=== PATIENT | male | born 1955 | race Caucasian/White ===

== ENCOUNTER 2019-05-16 08:44 | Emergency (ER) | payer BC, MEDICAID ==
[2019-05-16 09:09] VITALS: BP 161/95; PULSE 77
[2019-05-16] MEDS ORDERED: Sodium Chloride 0.9% 10 ML Syringe FLUSH PRN (09:38)
--- NOTE | 2019-05-16 09:44 | EDM.PDOC ---
ED HPI GENERAL MEDICAL PROBLEM - General Chief Complaint: Respiratory Problem Stated Complaint: POSS LUNG INFECTION Time Seen by Provider: 05/16/19 08:59 Source of Information: Reports: Patient History Limitations: Reports: No Limitations - History of Present Illness INITIAL COMMENTS - FREE TEXT/NARRATIVE: Patient is a 63-year-old male who presents with complaints of left-sided chest discomfort, shortness of breath, lightheadedness, night sweats, and nocturnal cough over the last couple days. 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 This condition developed approximate 2 years ago. He states that he did have a talc pleurodesis done a few months ago, however he hasn't unsure exactly when the procedure was. A chest xray was completed in our facility on 03/03/19 and he states that this was a f/u xray from this procedure. He states after the procedure was done he had significant improvement in his shortness of breath, however he feels that the lung may have recollapsed or he may have "a lung infection". His recovery room nurse is Dr. Cates and his technical fellow is Dr. Farfan, both at [facility] in [facility]. Left Chest Pain Score (Numeric/FACES): 4 - Related Data Allergies Allergy/AdvReac Type Severity Reaction Status Date / Time sulfur dioxide Allergy Cannot Verified 05/16/19 09:04 Remember Home Meds: Home Meds Gabapentin [Neurontin] 800 mg PO QID 05/16/19 [History] Lisinopril 20 mg PO DAILY 05/16/19 [History] Pantoprazole Sodium [Protonix] 40 mg PO DAILY 05/16/19 [History] levoFLOXacin [Levaquin] 500 mg PO DAILY 7 Days #7 tab 05/16/19 [Rx] traMADol HCl [Tramadol HCl] 50 mg PO Q6H PRN 05/16/19 [History] Past Medical History Cardiovascular History: Reports: Hypertension Respiratory History: Reports: Other (See Below) Other Respiratory History: 1/3 of left lung is per the pt report Musculoskeletal History: Reports: Arthritis Hematologic History: Reports: Other (See Below) Other Hematologic History: rare formof arthritis in blood - Past Surgical History HEENT Surgical History: Reports: Cataract Surgery Social & Family History - Tobacco Use Smoking Status *Q: Former Smoker Years of Tobacco use: 14 Packs/Tins Daily: 1 Used Tobacco, but Quit: Yes Month/Year Tobacco Last Used: 1987 - Caffeine Use Caffeine Use: Reports: Tea - Recreational Drug Use Recreational Drug Use: No ED ROS GENERAL - Review of Systems Review Of Systems: See Below Constitutional: Reports: Night Sweats. Denies: Fever, Chills HEENT: Reports: No Symptoms Respiratory: Reports: Shortness of Breath, Pleuritic Chest Pain, Cough ( nocturnal) Cardiovascular: Reports: Chest Pain (left sided), Lightheadedness Endocrine: Reports: No Symptoms GI/Abdominal: Reports: No Symptoms : Reports: No Symptoms Musculoskeletal: Reports: No Symptoms Skin: Reports: No Symptoms Neurological: Reports: No Symptoms Psychiatric: Reports: No Symptoms Hematologic/Lymphatic: Reports: No Symptoms Immunologic: Reports: No Symptoms ED EXAM, GENERAL - Physical Exam Exam: See Below Exam Limited By: No Limitations General Appearance: Alert, WD/WN, No Apparent Distress Throat/Mouth: Normal Inspection, Normal Oropharynx Head: Atraumatic, Normocephalic Respiratory/Chest: No Respiratory Distress, No Accessory Muscle Use, Chest Non- Tender, Decreased Breath Sounds (left lung throughout). No: Crackles, Rhonchi, Wheezing Cardiovascular: Normal Peripheral Pulses, Regular Rate, Rhythm, No Edema, No Murmur GI/Abdominal: Normal Bowel Sounds, Soft, Non-Tender Neurological: Alert, Oriented, Normal Cognition Psychiatric: Normal Affect, Normal Mood Skin Exam: Warm, Dry, Intact, Normal Color, No Rash Lymphatic: No Adenopathy EKG INTERPRETATION EKG Date: 05/16/19 Time: 09:02 Rhythm: NSR Rate (Beats/Min): 79 [place]: Normal P-Wave: Present QRS: Normal ST-T: Normal QT: Normal Comparison: NA - No Prior EKG EKG Interpretation Comments: - Early R-wave transition in V3 consider septal hypertrophy - T wave flattening in V5, V6, I, and aVL Course - Vital Signs Last Recorded V/S: Last Vital Signs Temp 97.2 F 05/16/19 09:06 Pulse 77 05/16/19 09:06 Resp 20 05/16/19 09:06 BP 161/95 H 05/16/19 09:06 Pulse Ox 97 05/16/19 09:06 - Orders/Labs/Meds Orders: Active Orders 24 hr Category Date Time Status EKG 12 Lead [EKG Documentation Completion] [RC] STAT Care 05/16/19 09:18 Active Peripheral IV Care [RC] . DIRECTED Care 05/16/19 09:38 Active Peripheral IV Insertion Adult [OM.PC] Stat Oth 05/16/19 09:38 Ordered Labs: Laboratory Tests 05/16/19 05/16/19 05/16/19 Range/Units 09:47 09:47 09:47 WBC 6.62 (4.23-9.07) K/mm3 RBC 5.16 (4.63-6.08) M/mm3 Hgb 13.7 (13.7-17.5) gm/dl Hct 42.8 (40.1-51.0) % MCV 82.9 D (79.0-92.2) fl MCH 26.6 (25.7-32.2) pg MCHC 32.0 L (32.2-35.5) g/dl RDW Std Deviation 50.8 H (35.1-43.9) fL Plt Count 347 H (163-337) K/mm3 MPV 9.7 (9.4-12.3) fl Neut % (Auto) 70.0 H (34.0-67.9) % Lymph % (Auto) 15.3 L (21.8-53.1) % [place] % (Auto) 8.9 (5.3-12.2) % Eos % (Auto) 5.0 (0.8-7.0) Baso % (Auto) 0.6 (0.1-1.2) % Neut # (Auto) 4.64 (1.78-5.38) K/mm3 Lymph # (Auto) 1.01 L (1.32-3.57) K/mm3 [place] # (Auto) 0.59 (0.30-0.82) K/mm3 Eos # (Auto) 0.33 (0.04-0.54) K/mm3 Baso # (Auto) 0.04 (0.01-0.08) K/mm3 D-Dimer, Quantitative 0.36 (0.19-0.50) mg/L Sodium 141 (136-145) mEq/L Potassium 3.5 (3.5-5.1) mEq/L Chloride 105 (98-107) mEq/L Carbon Dioxide 23 (21-32) mEq/L Anion Gap 16.5 H (5-15) BUN 20 H (7-18) mg/dL Creatinine 1.4 H (0.7-1.3) mg/dL Est Cr Clr Drug Dosing 59.01 mL/min Estimated GFR (MDRD) 52 (>60) mL/min BUN/Creatinine Ratio 14.3 (14-18) Glucose 140 H (80-115) mg/dL Calcium 9.3 (8.5-10.1) mg/dL Total Bilirubin 0.2 (0.2-1.0) mg/dL AST 13 L (15-37) U/L ALT 17 (16-63) U/L Alkaline Phosphatase 161 H (46-116) U/L Troponin I < 0.017 (0.00-0.056) ng/mL Total Protein 7.9 (6.4-8.2) g/dl Albumin 3.8 (3.4-5.0) g/dl Globulin 4.1 gm/dL Albumin/Globulin Ratio 0.9 L (1-2) Meds: Medications Discontinued Medications Generic Name Dose Route Start Last Admin Trade Name Freq PRN Reason Stop Dose Admin Sodium Chloride 1,000 mls @ 999 mls/hr 05/16/19 11:00 05/16/19 10:59 Normal Saline IV 999 mls/hr ASDIRECTED VINCENT Administration Ketorolac Tromethamine 30 mg 05/16/19 10:50 05/16/19 10:59 Toradol IVPUSH 05/16/19 10:51 30 mg ONETIME ONE Administration Sodium Chloride 10 ml 05/16/19 09:38 05/16/19 10:33 Saline Flush FLUSH 10 ml ASDIRECTED PRN Administration Keep Vein Open - Re-Assessments/Exams Free Text/Narrative Re-Assessment/Exam: Patient presents today with left-sided chest discomfort, shortness of breath, lightheadedness, and night sweats. Patient states that he has a history of a chronic pneumothorax on the left side. I have ordered a workup including CBC, CMP, troponin, d-dimer, 2 view chest x-ray and a saline lock at this time. We have contacted [facility] in [place] to request records for the patient. Free Text/Narrative Re-Assessment/Exam: 05/16/19 10:50 Laboratory results indicated the patient may be mildly dehydrated with an anion gap of 16.5, BUN of 20, creatinine 1.4. The remainder of his laboratory results were unremarkable. Patient is complaining of pain to his neck which is chronic for him however it it is uncomfortable for him at this time. I will order a 1 L bolus of normal saline as well as Toradol 30 mg IV. We are still waiting for records from his healthcare provider in [facility]. Free Text/Narrative Re-Assessment/Exam: 05/16/19 12:38 We did receive the records from [facility] in [facility] and these records were reviewed.. These have been scanned into the patient's chart. I did attempt to call and speak with the patient's recovery room nurse Dr. Cates, however he was with the patient at the time and has not called back thus far. Official read on the patient's chest x-ray show no acute changes from his previous chest x-ray which was done in February. Discussed case with ER MD, Dr. Rodriguez. We will discharge the patient home with a prescription for Levaquin 500 mg once daily for 7 days. If the patient should develop any worsening cough, fever, or shortness of breath he then has his medication available to take, although at this time we do not see any signs of a bacterial infection. The patient does plan on traveling back to [place] in the next couple days. I discussed this plan with the patient and he is in agreement. A release of information has been filled out by the patient to have these records sent to us recovery room nurse. He stated that he will contact Dr. Cates and schedule follow-up as needed once he gets home. Departure - Departure Time of Disposition: 12:43 Disposition: Home, Self-Care 01 Condition: Fair Clinical Impression: Chronic pneumothorax - Discharge Information *PRESCRIPTION DRUG MONITORING PROGRAM REVIEWED*: No *COPY OF PRESCRIPTION DRUG MONITORING REPORT IN PATIENT JOY: No Prescriptions: levoFLOXacin [Levaquin] 500 mg PO DAILY 7 Days #7 tab Instructions: Pneumothorax Referrals: PCP,None [Ordering Only Provider] - Forms: ED Department Discharge Additional Instructions: You were seen in the emergency department today with complaints of intermittent left-sided chest discomfort, shortness of breath, lightheadedness, night sweats , and a nocturnal cough over the last couple days. Your workup included an EKG , chest x-ray, and laboratory analysis. Your laboratory workup was grossly unremarkable, with the exception of some mild dehydration for which you did receive 1 L of IV fluids. There were no signs of infection on your lab work and your cardiac markers were normal. Your chest x-ray was stable from the x-ray that was completed here in February of this year. There were no signs of increased pneumothorax or pneumonia. We will discharge you home with a prescription for Levaquin 500 mg once daily for 7 days. You did indicated that you will be traveling back to [place] in the next couple days. If you should develop any worsening cough, shortness of breath, or fever, we recommend you start this medication and if necessary seek medical attention. If you develop any new or worsening symptoms while you are still in the area, please do not hesitate to return to the emergency department. - My Orders Last 24 Hours: My Active Orders 05/16/19 09:18 EKG 12 Lead [EKG Documentation Completion] [RC] STAT 05/16/19 09:38 Peripheral IV Care [RC] . DIRECTED Peripheral IV Insertion Adult [OM.PC] Stat - Assessment/Plan Last 24 Hours: My Active Orders 05/16/19 09:18 EKG 12 Lead [EKG Documentation Completion] [RC] STAT 05/16/19 09:38 Peripheral IV Care [RC] . DIRECTED Peripheral IV Insertion Adult [OM.PC] Stat
[2019-05-16] MEDS ORDERED: Ketorolac 60 MG/2 ML SDV IVPUSH ONE (10:50)
[2019-05-16] MEDS ORDERED: Sodium Chloride 0.9% 1,000 ML IV SCH (11:00)
--- NOTE | 2019-05-16 12:30 | CR ---
Chest: Two views of the chest were obtained. Comparison: Previous chest x-ray of 03/01/19. Loculated pneumothoraces are seen within the chest which are stable from previous exam. Findings causes collapse of a large portion of the left lung. Chronic parenchymal change seen within the right lung. No definite acute findings are seen. Nodular densities within both sides of the chest are seen which appear to be without definite change. Diaphragms are flattened on the lateral view compatible with emphysematous change. Impression: 1. Loculated pneumothoraces within the left chest which appear stable. 2. Chronic change within the right lung. 3. Pulmonary nodules on both sides of chest believed to be fairly stable from prior exam. 4. Probable emphysematous change. Diagnostic code #3 This report was dictated in [place] Standard [place]
== END 2019-05-16 13:03 | disposition home or self-care (01) ==
LOC: JD.ED 08:44
DX: J93.81 Chronic pneumothorax (principal); I10 Essential (primary) hypertension; Z91.048 Other nonmedicinal substance allergy status; Z87.891 Personal history of nicotine dependence; Z79.899 Other long term (current) drug therapy
CPT/HCPCS: 36415; 71046; 80053; 84484; 85025; 85379; 93005; 96361; 96374; 99285; J1885; J7030; 93010; 99283